=== PATIENT | female | born 1985 | race Caucasian/White ===

== ENCOUNTER 2018-06-15 13:04 | Emergency (ER) | payer OTHER ==
--- NOTE | 2018-06-15 13:33 | PDOC ---
History of Present Illness - General Chief Complaint: Chest Pain Stated Complaint: CHEST PAIN Time Seen by Provider: 06/15/18 13:33 History Source: Patient - History of Present Illness Initial Comments: 06/15/18 13:57 The patient is a 33 year old female with a PMH of fibromyalgia who presents to our ED c/o 2 day h/o chest pain. Pain is intermittent, pressure like non- radiating with no associated palpitations, shortness of breath. Pain started suddenly yesterday while she was sitting at home approximately 1 hour after eating a heavy meal. No dyspepsia sx. H/o previous similar episode that was self-resolving. Patient evaluated at urgent care this a.m. where an ECG showed RSR, patient sent to ED for further evaluation. No previous cardiac evaluation. No family cardiac history. The patient denies fevers/chills, abdominal pain, nausea/vomiting, diarrhea/ constipation, dysuria/hematuria. NKDA Surgical: none reported Social: denies toxic habits PMD: Dr. Shine Miller Past History - Past Medical History Allergies/Adverse Reactions: Allergies Allergy/AdvReac Type Severity Reaction Status Date / Time No Known Allergies Allergy Verified 06/15/18 14:25 Review of Systems - Review of Systems Constitutional: No: Chills, Fever Respiratory: Yes: Shortness of Breath. No: Cough Cardiac (ROS): Yes: Chest Pain. No: Lightheadedness, Palpitations ABD/GI: No: Constipated, Diarrhea, Nausea, Vomiting *Physical Exam - Physical Exam General Appearance: Yes: Nourished Neck: positive: Trachea midline, Supple Respiratory/Chest: positive: Lungs Clear, Normal Breath Sounds Cardiovascular: positive: S1, S2, Systolic Murmur. negative: Edema, JVD Vascular Pulses: Dorsalis-Pedis (R): 2+, Doralis-Pedis (L): 2+ Gastrointestinal/Abdominal: positive: Normal Bowel Sounds, Soft. negative: Guarding, Rebound, Tenderness, Hernia Extremity: positive: Normal Capillary Refill, Normal Inspection. negative: Calf Tenderness Integumentary: positive: Normal Color, Dry Neurologic: positive: Fully Oriented, Alert Heart Score/ECG Review - History History: Slightly suspicious - Age Age: </= 45 - ECG Impressions Comment:: 06/17/18 14:44 NSR HR 70, normal axis, normal intervals, no PAULINO/STD/TWI, minor T wave flattening V1 (likely 2/2 to lead placement) good R wave progression V1-V6. Non- ischemic ECG ED Treatment Course - LABORATORY CBC & Chemistry Diagram: 06/15/18 14:14 06/15/18 14:14 Medical Decision Making - Medical Decision Making 06/15/18 14:30 33 year old female with chest pain. VS unremarkable. Pain reproducible. EKG from urgent care shows RSR' but no PAULINO/STD. Given patient's h/o fibromyalgia, reproducible chest pain, low cardiac risk factors as well as post prandial pain onset low clinical suspicion for ACS, more likely GERD,PUD, gastritis. Will obtain Troponin x1, repeat EKG, CXR. GI cocktail. Observe and Reassess. Likely disposition is home. Troponin (-) x1 ECG non-ischemic as documented in ECG section of EMR CXR shows no consolidation/infiltrate Heart Score 1 Will discharge home with return precautions and PMD follow-up. I discussed the physical exam findings, ancillary test results and final diagnoses with the patient. I answered all of the patient's questions. The patient was satisfied with the care received and felt comfortable with the discharge plan and treatment plan. The patient will return to the Emergency Department with any new, persistent or worsening symptoms. *DC/Admit/Observation/Transfer Diagnosis at time of Disposition: Chest pain - Discharge Dispostion Disposition: HOME Condition at time of disposition: Good Decision to Admit order: No - Referrals Referrals: Imelda Quezada [Primary Care Provider] - - Patient Instructions Printed Discharge Instructions: DI for Atypical Chest Pain Additional Instructions: You were evaluated today for chest pain. All of your labs and an x-ray of your chest showed no concerning findings. You can use Maalox and Pepcid for your pain. You can also try Tylenol (up to 4000 mg daily) or Ibuprofen (up to 3200 mg daily ) for the next 5 days as needed. Please follow up with Dr. Miller in the next 3 days. Return to the Emergency Department for any new/worsening/concerning symptoms. - Post Discharge Activity
[2018-06-15 14:25] VITALS: TEMP 98; BMI 28.3
[2018-06-15 14:42] LABS: BASO % 0.7 % (0-2.0); EOS % 0.8 % (0-4.5); HEMATOCRIT 40.3 % (32.4-45.2); HEMOGLOBIN 13.6 GM/dL (10.7-15.3); LYMPH % 35.3 % (8-40); MCH 29.2 pg (25.7-33.7); MCHC 33.7 g/dl (32.0-36.0); MEAN CELL VOLUME 86.5 fl (80-96); MEAN PLT VOLUME 8.4 fl (7.5-11.1); MONO % 7.3 % (3.8-10.2); NEUT % 55.9 % (42.8-82.8); PLATELET COUNT 286 K/MM3 (134-434); RBC 4.66 M/mm3 (3.60-5.2); RDW 13.4 % (11.6-15.6); WHITE BLOOD COUNT 7.8 K/mm3 (4.0-10.0)
[2018-06-15] MEDS ORDERED: RANITIDINE HCL 150 MG TABLET (FP) PO ONE (14:43)
[2018-06-15] MEDS ORDERED: MAG HYDROX/AL HYDROX/SIMETH 30 ML UNIT-DOSE CUP PO ONE (14:43)
[2018-06-15] MEDS ORDERED: PANTOPRAZOLE 40 MG TABLET (FP) PO ONE (14:43)
[2018-06-15] MEDS ORDERED: MAG HYDROX/AL HYDROX/SIMETH 30 ML UNIT-DOSE CUP ONE (14:46)
[2018-06-15] MEDS ORDERED: RANITIDINE HCL 150 MG TABLET (FP) ONE (14:46)
[2018-06-15] MEDS ORDERED: PANTOPRAZOLE 40 MG TABLET (FP) ONE (14:46)
--- NOTE | 2018-06-15 14:46 | PDOC ---
Attending Attestation - Resident Resident Name: Sunni Conde - ED Attending Attestation I have performed the following: I have examined & evaluated the patient, The case was reviewed & discussed with the resident, I agree w/resident's findings & plan, Exceptions are as noted - HPI HPI: 06/15/18 14:55 33-year-old female patient with past mental history fiber myalgia presents with atypical chest pain since yesterday. Yesterday in the afternoon, the patient had eaten pork chops with rice. Approximately one hour later started developing a burning like and chest pressure sensation. The pain was intermittent and reproducible with movement. Denies shortness of breath or dyspnea on exertion. No family history. Stated that this morning, the pain persisted and felt a knot in her throat. Had a similar episode of this several months ago that resolved on its own. Never followed with a doctor. Never had an endoscopy. Because of the persistence of pain, went to an urgent care. Urgent care was concerned that she had an RSR prime in the septal leads so sent the patient to the ER. - Physicial Exam PE: 06/15/18 14:56 GENERAL: Awake, alert, and fully oriented, in no acute distress HEAD: No signs of trauma EYES: EOMI, sclera anicteric, conjunctiva clear ENT: Auricles normal inspection, hearing grossly normal, nares patent,. Moist mucosa NECK: Normal ROM, supple, LUNGS: Breath sounds equal, clear to auscultation bilaterally. No wheezes, and no crackles HEART: Regular rate and rhythm, normal S1 and S2, no murmurs, rubs or gallops ABDOMEN: Soft, TTP LUQ. No guarding, no rebound. No masses EXTREMITIES: Normal range of motion, no edema. No clubbing or cyanosis. No cords, erythema, or tenderness NEUROLOGICAL: Cranial nerves II through XII grossly intact. Normal speech SKIN: Warm, Dry, normal turgor, no rashes or lesions noted. - Medical Decision Making 06/15/18 14:58 Vital Signs Temp Pulse Resp BP Pulse Ox 98 F 93 H 18 113/63 100 06/15/18 13:04 06/15/18 13:04 06/15/18 13:04 06/15/18 13:04 06/15/18 13:04 I suspect that this is atypical chest pain and unlikely to be cardiac. I suspect gastritis. Will send labs including troponin. If workup is negative, and pt feels after GERD medications, will d/c with GI followup. 06/15/18 15:28 Chest xray reviewed. No acute findings. CBC, BMP 06/15/18 14:14 06/15/18 14:14 CMP Sodium 138 mmol/L (136-145) 06/15/18 14:14 Potassium 3.6 mmol/L (3.5-5.1) 06/15/18 14:14 Chloride 103 mmol/L (98-107) 06/15/18 14:14 Carbon Dioxide 26 mmol/L (21-32) 06/15/18 14:14 Anion Gap 9 MMOL/L (8-16) 06/15/18 14:14 BUN 8 mg/dL (7-18) 06/15/18 14:14 Creatinine 0.7 mg/dL (0.55-1.3) 06/15/18 14:14 Creat Clearance w eGFR > 60 (>60) 06/15/18 14:14 Random Glucose 83 mg/dL (74-106) 06/15/18 14:14 Calcium 8.9 mg/dL (8.5-10.1) 06/15/18 14:14 Total Bilirubin 0.3 mg/dL (0.2-1) 06/15/18 14:14 AST 16 U/L (15-37) 06/15/18 14:14 ALT 17 U/L (13-61) 06/15/18 14:14 Alkaline Phosphatase 90 U/L (45-117) 06/15/18 14:14 Creatine Kinase 92 IU/L (26-192) 06/15/18 14:14 Troponin I < 0.02 ng/ml (0.00-0.05) 06/15/18 14:14 Total Protein 7.4 g/dl (6.4-8.2) 06/15/18 14:14 Albumin 3.6 g/dl (3.4-5.0) 06/15/18 14:14 Chest xray reviewed. No acute findings. Heart Score/ECG Review - History History: Slightly suspicious - Electrocardiogram EKG: Non specific repolarization disturbance - Age Age: </= 45 - Risk Factors Risk Factors Heart Score: Yes Hx Obesity Based on the list above the patient has:: 1-2 risk factors - Troponin Troponin: </= normal limit - Score Heart Score - Total: 2 #1 ECG reviewed & interpreted by me at: 14:10 06/15/18 14:46 NSR 70, no std/yuliet, nonspecific T wave abnormality V2,TWI avL, QTC 442 msec
[2018-06-15 15:10] LABS: ALBUMIN 3.6 g/dl (3.4-5.0); ALK PHOS 90 U/L (45-117); ANION GAP 9 MMOL/L (8-16); BILIRUBIN,TOTAL 0.3 mg/dL (0.2-1); BLOOD UREA NITROGEN 8 mg/dL (7-18); CALCIUM 8.9 mg/dL (8.5-10.1); CHLORIDE 103 mmol/L (98-107); CO2 26 mmol/L (21-32); CREATININE 0.7 mg/dL (0.55-1.3); GLUCOSE,RANDOM 83 mg/dL (74-106); POTASSIUM 3.6 mmol/L (3.5-5.1); SGOT/AST 16 U/L (15-37); SGPT/ALT 17 U/L (13-61); SODIUM 138 mmol/L (136-145); TOT PROT 7.4 g/dl (6.4-8.2)
[2018-06-15 15:43] VITALS: BP 103/63; PULSE 82
--- NOTE | 2018-06-15 16:58 | EKG ---
Test Reason : Blood Pressure : / mmHG Vent. Rate : 088 BPM Atrial Rate : 088 BPM P-R Int : 140 ms QRS Dur : 086 ms QT Int : 376 ms P-R-T Axes : 069 072 041 degrees QTc Int : 454 ms NORMAL SINUS RHYTHM NORMAL ECG NO PREVIOUS ECGS AVAILABLE Confirmed by MARIELENA RIBEIRO MD ([id number]) on 06/15/2018 4:58:11 PM Referred By: Confirmed By:MARIELENA RIBEIRO MD
== END 2018-06-15 15:50 | disposition home or self-care (01) ==
LOC: JER 13:04
DX: R07.9 Chest pain, unspecified (principal); M79.7 Fibromyalgia
CPT/HCPCS: 36415; 71045-TC-FY; 80053; 82550; 84484; 84703; 85025; 93005; 93010; 99281-25